=== PATIENT | male | born 1965 | race Caucasian/White ===

== ENCOUNTER 2018-01-26 08:42 | Day surgery (SDC) | payer OTHER ==
[2018-01-25 12:49] VITALS: BMI 25.9
[2018-01-26] MEDS ORDERED: DiphenhydrAMINE 50 mg/ml Inj ONE (09:46)
[2018-01-26] MEDS ORDERED: Famotidine 20mg/50ml 20 MG/50 ML BAG IVPB ONE (09:47)
[2018-01-26] MEDS ORDERED: Lidocaine 2% Inj (20ml) ONE (09:49)
[2018-01-26] MEDS ORDERED: Midazolam 2 MG/2 ML VIAL ONE ×2 (09:49→10:12)
[2018-01-26] MEDS ORDERED: Iodixanol 320 MG/ML 200 ML BOTTLE IV ONE (09:50)
[2018-01-26 09:58] LABS: BASO # 0.04 K/mm3 (0.0-2.0); EOS # 0.1 (0.0-0.7); EOS % 2.6 % (1.5-5.0); GRAN # 2.63 (1.4-6.5); GRAN % 62.4 % (50.0-68.0); HEMOGLOBIN 13.9 g/dL (14.0-18.0); LYMPH % 24.7 % (22.0-35.0); MEAN CELL VOLUME 88.8 fl (80.0-105.0); MEAN CORPUSCULAR HEMOGLOBIN 29.8 pg (25.0-35.0); MEAN CORPUSCULAR HGB CONC 33.6 g/dl (31.0-37.0); MONO # 0.4 (0.1-0.6); MONO % 9.3 % (1.0-6.0); RBC 4.66 10^6/uL (3.5-6.1); RED CELL DISTRIBUTION WIDTH 14.4 % (11.5-14.5); WHITE BLOOD COUNT 4.2 10^3/ul (4.5-11.0)
[2018-01-26 10:06] LABS: BLOOD UREA NITROGEN 15 mg/dL (7-21); GFR AFRICAN-AMERICAN > 60; GFR NON-AFRICAN AMERICAN > 60
[2018-01-26 10:11] LABS: INR 0.91 (0.93-1.08); PARTIAL THROMBOPLASTIN TIME 27.2 Seconds (25.1-36.5); PROTHROMBIN TIME 10.5 SECONDS (9.4-12.5)
[2018-01-26] MEDS ORDERED: Sodium Chloride 0.9% 1,000 ML IV SCH (11:00)
[2018-01-26 11:08] VITALS: TEMP 97.5
[2018-01-26 11:55] VITALS: RESP 16
[2018-01-26 11:58] VITALS: O2SAT 98
--- NOTE | 2018-01-26 12:21 | CARDCATH ---
PROCEDURE DATE: 01/26/2018 HISTORY: The patient is a 52-year-old male who presents with chest pain. The stress test reveals an ejection fraction of 48%. The patient's cardiac risk factor is a strong family history with his mother with coronary artery disease in the age of 30s. Because of this, cardiac catheterization was recommended. PROCEDURE: Left heart catheterization with coronary arteriography and left ventriculogram. The right femoral artery was cannulated with 6-Bolivian sheath. There were no complications. I performed moderate sedation, which included the presence of an independent trained observer that assisted in monitoring the patient's level of consciousness and physiologic status. After administration of Versed and fentanyl, my intra service time was 15 minutes. The findings on catheterization revealed a left ventricle that was mildly hypokinetic. Estimated ejection fraction is approximately 50%. His coronary anatomy revealed a codominant circulation. The RCA revealed intimal irregularities without significant stenosis. Left main artery was unremarkable. LAD and diagonal vessels revealed intimal irregularities without critical lesions. Circumflex artery revealed intimal irregularities without critical lesions. Angio-Seal was used to close the femoral artery site. The patient tolerated the procedure well. 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 The patient's coronary arteries are free of significant disease. Given these findings, the patient's slightly depressed LV function is not due to ischemic disease. We will place the patient on an JAMAL inhibitor and strictly control his blood pressure. An exercise program will be recommended. Tian Menard MD
[2018-01-26 15:06] VITALS: BP 116/74; PULSE 69
--- NOTE | 2018-01-26 22:12 | CARD ---
APPROVED REPORT EKG Measurement Heart [id number] <Conclusion> Normal sinus rhythm with sinus arrhythmia Normal ECG
== END 2018-01-26 16:00 | disposition home or self-care (01) ==
LOC: CATH 08:42
PROVIDERS: ATTEND Internal Medicine Cardiovascular Disease
DX: I42.9 Cardiomyopathy, unspecified (principal); R07.9 Chest pain, unspecified; M06.9 Rheumatoid arthritis, unspecified; K22.70 Barrett's esophagus without dysplasia; J45.909 Unspecified asthma, uncomplicated; Z82.49 Family history of ischemic heart disease and other diseases of the circulatory system
CPT/HCPCS: 36415; 80048; 85025; 85610; 85730; 86850; 86900; 93005; 93458; 99152; 99153; C1760; C1769; C2629; J0690; J1200; J1644; J2250; J2930; J3010; J7030 ×2; Q9966